=== PATIENT | male | born 1995 ===

== ENCOUNTER 2021-08-18 20:54 | Emergency (ER) | payer SELFPAY ==
[2021-08-18 22:00] VITALS: BP 126/86; PULSE 95; RESP 20; TEMP 99.6
--- NOTE | 2021-08-18 22:13 | XR ---
EXAMINATION TYPE: XR chest 2V DATE OF EXAM: 08/18/2021 COMPARISON: NONE HISTORY: Cough. Headache TECHNIQUE: 2 views FINDINGS: Heart and mediastinum are normal. Lungs are clear. Diaphragm is normal. Bony thorax is inta ct. IMPRESSION: Normal chest.
== END 2021-08-18 22:44 | disposition left against medical advice (07) ==
LOC: EC 20:54
DX: Z53.21 Procedure and treatment not carried out due to patient leaving prior to being seen by health care provider (principal)
CPT/HCPCS: 71046; 87502; 87635; 99499